=== PATIENT | female | born 1980 | race Caucasian/White ===

== ENCOUNTER 2020-10-27 08:40 | Emergency (ER) | payer MEDICARE, OTHER ==
[2020-10-27] MEDS ORDERED: Acetaminophen 500 MG TAB ONE (10:49)
[2020-10-27] MEDS ORDERED: Ketorolac Tromethamine 30 MG/ML VIAL ONE (10:49)
--- NOTE | 2020-10-27 11:15 | RAD ---
EXAM: Lumbar spine 2 views: HISTORY: Pain COMPARISON: None FINDINGS: Minimal lumbar spondylosis. No evidence for acute fracture or dislocation or significant acute osseous process. Alignment:No significant malalignment. Discs: Disc spaces are adequately preserved. No evidence for a focal bone lesion. IMPRESSION: No significant acute process.
[2020-10-27 12:13] LABS: Bacteria/HPF 1+ HPF (None Seen); Bilirubin Negative (Negative); Blood, Urine Trace (Negative); Clarity Clear (Clear); Glucose, Urine (Dipstick) Greater than 1000 mg/dL (Negative); Ketone, Urine Negative (Negative); Leukocyte 75 Leu/uL (Negative); Nitrite Negative (Negative); Protein, Urine (Dipstick) Negative (Neg-Trace); RBC/HPF 0-3 HPF (0-3); Specific Gravity, Urine 1.042 (1.002-1.036); Urobilinogen Normal mg/dL (Less than 2); WBC/HPF 21-50 HPF (0-3)
== END 2020-10-27 13:13 | disposition home or self-care (01) ==
LOC: ERS 08:40
DX: M79.604 Pain in right leg (principal); M79.605 Pain in left leg; E11.9 Type 2 diabetes mellitus without complications; I10 Essential (primary) hypertension; Z79.84 Long term (current) use of oral hypoglycemic drugs; Z79.899 Other long term (current) drug therapy
CPT/HCPCS: 72100; 81003; 81015; 87077; 87086; 87186; 96372; J1885

== ENCOUNTER 2020-11-07 09:31 | Outpatient (CLI) | payer MEDICARE, MEDICAID | END 2020-11-07 09:32 | disposition home or self-care (01) | LOC: TBSIIMAG 09:31 | PROVIDERS: ATTEND Surgery | DX: M47.26 Other spondylosis with radiculopathy, lumbar region (principal); M51.16 Intervertebral disc disorders with radiculopathy, lumbar region | CPT/HCPCS: 72120 ==

== ENCOUNTER 2020-11-21 10:04 | Outpatient (CLI) | payer MEDICARE, OTHER ==
[2020-11-21 17:26] LABS: SARS-CoV-2 PCR by NAA Not Detected (NotDetected)
== END 2020-11-21 10:05 | disposition home or self-care (01) ==
LOC: LABBT 10:04
PROVIDERS: ATTEND Surgery
DX: Z01.812 Encounter for preprocedural laboratory examination (principal); M54.5 Low back pain; Z20.822 Contact with and (suspected) exposure to COVID-19
CPT/HCPCS: U0003; U0005; 87635

== ENCOUNTER 2020-11-25 09:37 | Day surgery (SDC) | payer MEDICARE, MEDICAID ==
[2020-11-22 15:32] VITALS: BMI 34.2
[2020-11-25] MEDS ORDERED: Dexamethasone 20 MG/5 ML VIAL ONE (10:29)
[2020-11-25] MEDS ORDERED: Lidocaine 1% PF 5 ML VIAL ONE (10:29)
[2020-11-25] MEDS ORDERED: Ondansetron PF 4 MG/2 ML Vial ONE (10:29)
[2020-11-25] MEDS ORDERED: PROPOFOL 200 MG/20 ML VIAL ONE (10:29)
--- NOTE | 2020-11-25 11:01 | RAD ---
LUMBAR SPINE 5 VIEWS: INDICATION: Lumbar radiculopathy. COMPARISON: Prior exam dated 11/07/2020. FINDINGS: There are 5 lumbar-type vertebrae. There is mild multilevel degenerative disk disease. There is mod erate L4-5 and L5-S1 facet osteoarthrosis. No acute fracture is evident. No abnormal translational motion is evident. IMPRESSION: 1. Mild multilevel lumbar spondylosis. 2. No abnormal translational motion. POS: [facility]
[2020-11-25] MEDS ORDERED: Midazolam HCl 2 mg/2 ml Vial ONE (12:39)
[2020-11-25] MEDS ORDERED: Fentanyl 100 MCG/2 ML VIAL ONE (12:39)
--- NOTE | 2020-11-25 13:25 | MRI ---
MR the lumbar spine without contrast: 11/25/2020 History: Low back pain with pain radiating into bilateral lower extremities, difficulty walking COMPARISON: None. TECHNIQUE: Multiplanar multisequence MR images were obtained of lumbar spine without IV contrast FINDINGS: On the basis of 5 lumbar type vertebral bodies, conus medullaris terminates at [id number] level. Sagittal STIR imaging demonstrates no focal area of osseous marrow edema. There are congenitally shor t pedicles which leads to significant diffuse central canal stenosis throughout the lumbar spine. This is exacerbated by multiple areas of degenerative disc disease as described below. T12-L1:There is a small left paracentral disc protrusion. There is mild bilateral facet hypertrophy. Mild central canal stenosis. No neural foraminal stenosis. L1-2:There is mild bilateral facet hypertrophy, left greater than right. Mild central canal stenosis. No neural foraminal stenosis. L2-3:There is disc space narrowing with disc desiccation, disc bulge, and superimposed left paracentr al disc protrusion. This leads to moderate/severe central canal stenosis. Mild bilateral facet hypertrophy. No significant neural foraminal stenosis. L3-4:Intervertebral disc height and signal intensity within normal limits. Bilateral facet hypertroph y. Moderate central canal stenosis. No neural foraminal stenosis. L4-5:There is prominent bilateral facet hypertrophy and hypertrophy of the ligamentum flavum, left gr eater than right. There is severe left lateral recess stenosis. There is disc space narrowing with disc bulge. Moderate/severe central canal stenosis. Mild bilateral neural foraminal stenosis. L5-S1:There is disc space narrowing and disc desiccation with disc bulge causing severe central canal stenosis. There is prominent bilateral facet hypertrophy with moderate bilateral neural foraminal stenosis, left greater than right. Image retroperitoneal structures demonstrateno acute findings. 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 This is exacerbated by multilevel de generative disc disease, most prominent at L2-3 and L5-S1. Please see above discussion.
== END 2020-11-25 14:49 | disposition home or self-care (01) ==
LOC: MRI 09:37 → EDSTATUS 12:00 → MRI 14:49
PROVIDERS: ATTEND Surgery
DX: M47.26 Other spondylosis with radiculopathy, lumbar region (principal); M48.061 Spinal stenosis, lumbar region without neurogenic claudication; Z79.84 Long term (current) use of oral hypoglycemic drugs; Z79.899 Other long term (current) drug therapy
CPT/HCPCS: 36416; 72100; 72148; J1100; J2250; J2405; J2704; J3010

== ENCOUNTER 2021-01-14 13:04 | Outpatient (CLI) | payer MEDICARE, MEDICAID ==
[2021-01-14 14:49] LABS: Hemoglobin 14.3 g/dL (12.0-15.5); Mean Corpuscular HGB CONC 33.6 g/dL (32.0-36.0); Mean Corpuscular Hemoglobin 31.5 pg (27.0-33.0); Mean Corpuscular Volume 93.8 fl (81.6-98.3); Mean Platelet Volume 11.4 fl (7.4-10.4); Platelet Count 240 10x3/uL (150-450); RBC Distribution Width 12.7 % (11.5-14.5); Red Blood Cell (RBC) Count 4.54 10x6/uL (3.90-5.03)
[2021-01-14 15:38] LABS: Anion Gap 17 mmol/L (10-20); BUN (Urea Nitrogen) 15 mg/dL (7.0-18.7); Calc. Creatinine Clearance 0 mL/min (70-130); Calcium 9.4 mg/dL (7.8-10.44); Carbon Dioxide 23 mmol/L (22-29); Chloride 103 mmol/L (98-107); Glucose 107 mg/dL (70-105); Potassium 4.3 mmol/L (3.5-5.1); Sodium 139 mmol/L (136-145)
[2021-01-14 15:47] LABS: INR-International Normal Ratio 0.9; PTT 23.1 sec (22.0-33.0); Prothrombin Time 10.3 sec (9.5-12.1)
[2021-01-14 22:35] LABS: SARS-CoV-2 PCR by NAA Not Detected (NotDetected)
== END 2021-01-14 13:05 | disposition home or self-care (01) ==
LOC: LABBT 13:04
PROVIDERS: ATTEND Surgery
DX: Z01.818 Encounter for other preprocedural examination (principal); M48.062 Spinal stenosis, lumbar region with neurogenic claudication; M51.16 Intervertebral disc disorders with radiculopathy, lumbar region; Z20.822 Contact with and (suspected) exposure to COVID-19
CPT/HCPCS: 80048; 85027; 85610; 85730; U0003; U0005; 87635; 93005; 93010

== ENCOUNTER 2021-01-21 14:23 | Inpatient (IN) | payer MEDICARE, MEDICAID ==
[2021-01-15 14:20] VITALS: BMI 34.2
[2021-01-17] MEDS: CEFAZOLIN 2 GM in Premix Bag 1 BAG IVPB SCH (15:51)
[2021-01-17] MEDS: Haloperidol 5 MG TAB PO SCH ×2 (16:08→20:24)
[2021-01-17] MEDS: Sodium Chloride 0.9% 1,000 ML IV SCH ×2 (16:35→23:30)
[2021-01-17] MEDS: tiZANidine HCl 4 MG TAB PO PRN (17:07)
[2021-01-17] MEDS: metFORMIN 500 MG TAB PO SCH (17:08)
[2021-01-17] MEDS: cloNIDine 0.1 MG TAB PO SCH (20:23)
[2021-01-17] MEDS: traZODone HCl 50 MG TAB PO SCH (20:24)
[2021-01-17] MEDS: Atorvastatin Calcium 10 MG TAB PO SCH (20:24)
[2021-01-17] MEDS: Metoprolol Tartrate 100 MG TAB PO SCH (20:24)
[2021-01-18] MEDS: CEFAZOLIN 2 GM in Premix Bag 1 BAG IVPB SCH (00:04)
[2021-01-18 05:56] LABS: #Lymphocytes 1.8 thou/uL (1.20-3.40); %Basophils 0.1 % (0.0-1.0); %Lymphocytes 15.2 % (21.0-51.0); %Monocytes 8.4 % (0.0-10.0); %Neutrophils 76.3 % (42.0-75.0); Hemoglobin 12.3 g/dL (12.0-16.0); Mean Corpuscular HGB CONC 34.5 g/dL (32.0-36.0); Mean Corpuscular Hemoglobin 32.9 pg (27.0-31.0); Mean Corpuscular Volume 95.3 fL (78.0-98.0); Mean Platelet Volume 8.8 fL (7.4-10.4); Platelet Count 198 thou/uL (130-400); RBC Distribution Width 11.8 % (11.5-14.5); Red Blood Cell (RBC) Count 3.73 mill/uL (4.20-5.40); White Blood Cell (WBC) Count 11.8 thou/uL (4.8-10.8)
[2021-01-18 06:15] LABS: Anion Gap 15 mmol/L (10-20); BUN (Urea Nitrogen) 11 mg/dL (7.0-18.7); Calc. Creatinine Clearance 121 mL/min (70-130); Calcium 8.3 mg/dL (7.8-10.44); Carbon Dioxide 22 mmol/L (22-29); Chloride 105 mmol/L (98-107); Glucose 129 mg/dL (70-105); Potassium 4.3 mmol/L (3.5-5.1); Sodium 138 mmol/L (136-145)
[2021-01-18] MEDS: metFORMIN 500 MG TAB PO SCH ×2 (08:32→16:21)
[2021-01-18] MEDS: Cholecalciferol 1,000 UNITS (25 MCG) TAB PO SCH (08:32)
[2021-01-18] MEDS: HYDROcodone/Acetaminophen 7.5/325 mg Tablet PO PRN ×3 (08:32→20:12)
[2021-01-18] MEDS: Haloperidol 5 MG TAB PO SCH ×3 (08:32→20:14)
[2021-01-18] MEDS: Calcium Carbonate 600 MG + Vit D TAB PO SCH (08:32)
[2021-01-18] MEDS: cloNIDine 0.1 MG TAB PO SCH ×2 (08:33→20:13)
[2021-01-18] MEDS: Fenofibrate Nanocrystallized 145 MG TAB PO SCH (09:26)
[2021-01-18] MEDS: Empagliflozin 25 MG TAB PO SCH (09:26)
[2021-01-18] MEDS: Sodium Chloride 0.9% 1,000 ML IV SCH (12:56)
[2021-01-18] MEDS: Metoprolol Tartrate 100 MG TAB PO SCH (20:13)
[2021-01-18] MEDS: Atorvastatin Calcium 10 MG TAB PO SCH (20:13)
[2021-01-18] MEDS: traZODone HCl 50 MG TAB PO SCH (20:13)
[2021-01-19] MEDS: HYDROcodone/Acetaminophen 7.5/325 mg Tablet PO PRN ×4 (01:14→20:22)
[2021-01-19] MEDS: Sodium Chloride 0.9% 1,000 ML IV SCH ×2 (04:00→15:44)
[2021-01-19] MEDS: Calcium Carbonate 600 MG + Vit D TAB PO SCH (08:04)
[2021-01-19] MEDS: Cholecalciferol 1,000 UNITS (25 MCG) TAB PO SCH (08:05)
[2021-01-19] MEDS: Empagliflozin 25 MG TAB PO SCH (08:05)
[2021-01-19] MEDS: Haloperidol 5 MG TAB PO SCH ×3 (08:05→20:23)
[2021-01-19] MEDS: metFORMIN 500 MG TAB PO SCH ×2 (08:05→16:47)
[2021-01-19] MEDS: cloNIDine 0.1 MG TAB PO SCH ×2 (08:06→20:22)
[2021-01-19] MEDS: Acetaminophen/Codeine 30-300mg Tablet PO PRN (09:43)
[2021-01-19] MEDS: Metoprolol Tartrate 100 MG TAB PO SCH (20:22)
[2021-01-19] MEDS: traZODone HCl 50 MG TAB PO SCH (20:22)
[2021-01-19] MEDS: Atorvastatin Calcium 10 MG TAB PO SCH (20:23)
[2021-01-20] MEDS: HYDROcodone/Acetaminophen 7.5/325 mg Tablet PO PRN ×3 (03:21→21:24)
[2021-01-20] MEDS: Sodium Chloride 0.9% 1,000 ML IV SCH ×2 (04:47→19:00)
[2021-01-20] MEDS: metFORMIN 500 MG TAB PO SCH ×2 (08:39→17:25)
[2021-01-20] MEDS: Haloperidol 5 MG TAB PO SCH ×3 (08:40→22:03)
[2021-01-20] MEDS: Calcium Carbonate 600 MG + Vit D TAB PO SCH (08:40)
[2021-01-20] MEDS: Cholecalciferol 1,000 UNITS (25 MCG) TAB PO SCH (08:40)
[2021-01-20] MEDS: cloNIDine 0.1 MG TAB PO SCH ×2 (08:40→21:23)
[2021-01-20] MEDS: Fenofibrate Nanocrystallized 145 MG TAB PO SCH (08:40)
[2021-01-20] MEDS: Empagliflozin 25 MG TAB PO SCH (09:44)
[2021-01-20] MEDS: Acetaminophen/Codeine 30-300mg Tablet PO PRN (09:44)
[2021-01-20] MEDS: traZODone HCl 50 MG TAB PO SCH (21:23)
[2021-01-20] MEDS: Atorvastatin Calcium 10 MG TAB PO SCH (21:23)
[2021-01-20] MEDS: tiZANidine HCl 4 MG TAB PO PRN (21:23)
[2021-01-20] MEDS: Metoprolol Tartrate 100 MG TAB PO SCH (21:23)
[2021-01-21] MEDS: HYDROcodone/Acetaminophen 7.5/325 mg Tablet PO PRN ×3 (06:36→17:33)
[2021-01-21] MEDS: Cholecalciferol 1,000 UNITS (25 MCG) TAB PO SCH (08:57)
[2021-01-21] MEDS: metFORMIN 500 MG TAB PO SCH ×2 (08:57→17:34)
[2021-01-21] MEDS: Calcium Carbonate 600 MG + Vit D TAB PO SCH (08:57)
[2021-01-21] MEDS: Sodium Chloride 0.9% 1,000 ML IV SCH ×2 (08:57→21:57)
[2021-01-21] MEDS: Empagliflozin 25 MG TAB PO SCH (10:06)
[2021-01-21] MEDS: Haloperidol 5 MG TAB PO SCH ×3 (10:06→21:53)
[2021-01-21] MEDS: cloNIDine 0.1 MG TAB PO SCH ×2 (10:08→21:55)
[~2021-01-21 14:23] MED LIST: Acetaminophen 325 MG TAB PO PRN; Bisacodyl 10 MG SUPP PR PRN; DULAGLUTIDE 1.5 MG/0.5 ML SC SCH; Dexamethasone 20 MG/5 ML VIAL ONE; Fentanyl 100 MCG/2 ML VIAL ONE; HYDROcodone/Acetaminophen 7.5/325 mg Tablet ONE; HYDROmorphone 2 MG/ML VIAL ONE; HYDROmorphone 2 MG/ML VIAL SLOW IVP PRN; Ketorolac Tromethamine 30 MG/ML VIAL ONE; LEVONORGESTREL ETHIN ESTRADIOL PO SCH; Lidocaine 1% PF 5 ML VIAL ONE; Mag-Al 1200 mg/1200 mg/30 ML UDCUP PO PRN; Meperidine HCl/PF 25 MG/ML VIAL SLOW IVP PRN; Midazolam HCl 2 mg/2 ml Vial ONE; Milk Of Magnesia 30 ML UDCUP PO PRN; Morphine 2 MG/ML VIAL SLOW IVP PRN; Ondansetron HCl/PF 4 MG/2 ML Vial IVP PRN; Ondansetron PF 4 MG/2 ML Vial ONE; PHENYLEPHRINE-NS 100 MCG/ML 10 ML SYRINGE ONE; PROPOFOL 200 MG/20 ML VIAL ONE; Promethazine HCl 25 MG/ML VIAL IM PRN; Promethazine HCl 25 MG/ML VIAL SLOW IVP PRN; Rocuronium Bromide 10 MG/ML (10ML VIAL) ONE; SUGAMMADEX SODIUM 200 MG/2 ML VIAL ONE; Thrombin 5000 UNITS/5 ML VIAL ONE; ePHEDrine Sulfate 50 MG/10 ML VIAL ONE; traMADol HCl 50 MG TAB PO PRN
[2021-01-21] MEDS: Atorvastatin Calcium 10 MG TAB PO SCH (21:53)
[2021-01-21] MEDS: traZODone HCl 50 MG TAB PO SCH (21:53)
[2021-01-21] MEDS: Metoprolol Tartrate 100 MG TAB PO SCH (21:55)
[2021-01-22] MEDS: HYDROcodone/Acetaminophen 7.5/325 mg Tablet PO PRN ×3 (06:53→21:25)
[2021-01-22] MEDS: tiZANidine HCl 4 MG TAB PO PRN (06:54)
[2021-01-22] MEDS: Calcium Carbonate 600 MG + Vit D TAB PO SCH (08:46)
[2021-01-22] MEDS: cloNIDine 0.1 MG TAB PO SCH ×2 (08:46→21:19)
[2021-01-22] MEDS: metFORMIN 500 MG TAB PO SCH ×2 (08:46→17:51)
[2021-01-22] MEDS: Cholecalciferol 1,000 UNITS (25 MCG) TAB PO SCH (08:46)
[2021-01-22] MEDS: Fenofibrate Nanocrystallized 145 MG TAB PO SCH (08:51)
[2021-01-22] MEDS: Empagliflozin 25 MG TAB PO SCH (10:15)
[2021-01-22] MEDS: Haloperidol 5 MG TAB PO SCH ×3 (10:15→21:19)
[2021-01-22] MEDS: Sodium Chloride 0.9% 1,000 ML IV SCH (10:17)
[2021-01-22] MEDS: traZODone HCl 50 MG TAB PO SCH (21:19)
[2021-01-22] MEDS: Metoprolol Tartrate 100 MG TAB PO SCH (21:19)
[2021-01-22] MEDS: Atorvastatin Calcium 10 MG TAB PO SCH (21:19)
[2021-01-23] MEDS: Sodium Chloride 0.9% 1,000 ML IV SCH ×2 (06:44→13:14)
[2021-01-23] MEDS: metFORMIN 500 MG TAB PO SCH ×2 (09:01→17:49)
[2021-01-23] MEDS: Calcium Carbonate 600 MG + Vit D TAB PO SCH (09:01)
[2021-01-23] MEDS: cloNIDine 0.1 MG TAB PO SCH ×2 (09:02→20:54)
[2021-01-23] MEDS: Cholecalciferol 1,000 UNITS (25 MCG) TAB PO SCH (09:02)
[2021-01-23] MEDS: Empagliflozin 25 MG TAB PO SCH (09:02)
[2021-01-23] MEDS: Haloperidol 5 MG TAB PO SCH ×3 (10:37→20:54)
[2021-01-23] MEDS: Cephalexin 250 MG CAP PO SCH ×2 (12:16→17:49)
[2021-01-23] MEDS: HYDROcodone/Acetaminophen 7.5/325 mg Tablet PO PRN ×2 (15:52→20:53)
[2021-01-23] MEDS: tiZANidine HCl 4 MG TAB PO PRN (17:52)
[2021-01-23] MEDS: Atorvastatin Calcium 10 MG TAB PO SCH (20:54)
[2021-01-23] MEDS: Metoprolol Tartrate 100 MG TAB PO SCH (20:54)
[2021-01-23] MEDS: traZODone HCl 50 MG TAB PO SCH (20:54)
[2021-01-24] MEDS: Cephalexin 250 MG CAP PO SCH ×3 (00:03→11:08)
[2021-01-24] MEDS: Sodium Chloride 0.9% 1,000 ML IV SCH (05:39)
[2021-01-24] MEDS: cloNIDine 0.1 MG TAB PO SCH (09:16)
[2021-01-24] MEDS: Empagliflozin 25 MG TAB PO SCH (09:17)
[2021-01-24] MEDS: Calcium Carbonate 600 MG + Vit D TAB PO SCH (09:17)
[2021-01-24] MEDS: Cholecalciferol 1,000 UNITS (25 MCG) TAB PO SCH (09:17)
[2021-01-24] MEDS: metFORMIN 500 MG TAB PO SCH (09:17)
[2021-01-24] MEDS: Fenofibrate Nanocrystallized 145 MG TAB PO SCH (09:18)
[2021-01-24] MEDS: Haloperidol 5 MG TAB PO SCH (09:18)
[2021-01-24] MEDS: HYDROcodone/Acetaminophen 7.5/325 mg Tablet PO PRN (11:03)
[2021-01-24 11:06] VITALS: BP 108/74; TEMP 97.9
[2021-01-24] MEDS: tiZANidine HCl 4 MG TAB PO PRN (12:38)
== END 2021-01-24 13:00 | DRG 520 ==
LOC: SURG A 14:23 → SJX 14:23 → SURG A 14:25 → SDC 14:25 → SURG A 14:27
PROVIDERS: ADMIT Surgery; ATTEND Surgery
PROC: 0SB40ZZ Excision of Lumbosacral Disc, Open Approach (ICD-10-PCS; principal; 2021-01-17)
PROC: 01NB0ZZ Release Lumbar Nerve, Open Approach (ICD-10-PCS; 2021-01-17)
PROC: 01NR0ZZ Release Sacral Nerve, Open Approach (ICD-10-PCS; 2021-01-17)
DX: M48.062 Spinal stenosis, lumbar region with neurogenic claudication (principal); M51.16 Intervertebral disc disorders with radiculopathy, lumbar region; Z20.822 Contact with and (suspected) exposure to COVID-19; I10 Essential (primary) hypertension; E78.5 Hyperlipidemia, unspecified; E11.9 Type 2 diabetes mellitus without complications; F32.9 Major depressive disorder, single episode, unspecified; F41.9 Anxiety disorder, unspecified; E66.9 Obesity, unspecified; Z68.34 Body mass index [BMI] 34.0-34.9, adult; Z79.84 Long term (current) use of oral hypoglycemic drugs; Z79.899 Other long term (current) drug therapy
CPT/HCPCS: 36415; 36416; 76000; 80048; 85025; J0690; J1100; J1170; J1885; J2250; J2405; J2704; J3010; J3370